=== PATIENT | female | born 1955 | race Caucasian/White ===

== ENCOUNTER 2022-04-20 10:22 | Outpatient (CLI) | payer MEDICARE, SELFPAY | END 2022-04-20 10:23 | disposition home or self-care (01) | PROVIDERS: PCP Physician Assistant Medical; Visit Provider Physician Assistant Medical | DX: E55.9 Vitamin D deficiency, unspecified (principal); E78.5 Hyperlipidemia, unspecified; F41.9 Anxiety disorder, unspecified; E53.8 Deficiency of other specified B group vitamins | CPT/HCPCS: 80053; 80061; 82306; 82607; 84443 ==

== ENCOUNTER 2023-03-25 10:25 | Outpatient (CLI) | payer MEDICARE, SELFPAY | END 2023-03-25 10:26 | disposition home or self-care (01) | PROVIDERS: PCP Physician Assistant Medical; Visit Provider Physician Assistant Medical | DX: E78.2 Mixed hyperlipidemia (principal); M85.80 Other specified disorders of bone density and structure, unspecified site; Z13.228 Encounter for screening for other metabolic disorders; Z13.29 Encounter for screening for other suspected endocrine disorder | CPT/HCPCS: 80053; 80061; 82306; 84443 ==

== ENCOUNTER 2023-06-07 08:02 | Outpatient (CLI) | payer MEDICARE, SELFPAY ==
--- NOTE | 2023-06-07 09:02 | W.ANESCHARGE ---
Anesthesia Charges Start Date/Time Anesthesia Start Date: 06/07/23 Anesthesia Start Time: 08:30 Stop Date/Time Anesthesia Stop Date: 06/07/23 Anesthesia Stop Time: 08:59
--- NOTE | 2023-06-07 11:52 | W.ANESCHARGE ---
Anesthesia Charges Start Date/Time Anesthesia Start Date: 06/07/23 Anesthesia Start Time: 08:30 Stop Date/Time Anesthesia Stop Date: 06/07/23 Anesthesia Stop Time: 08:59
== END 2023-06-07 08:03 | disposition home or self-care (01) ==
LOC: OP CLINIC 08:03
PROVIDERS: PCP Physician Assistant Medical; Visit Provider Surgery
DX: K63.5 Polyp of colon (principal); K62.1 Rectal polyp; K63.89 Other specified diseases of intestine; Z86.010 Personal history of colon polyps
CPT/HCPCS: 00811; 45380; 45385; 88305; J2704

== ENCOUNTER 2023-06-14 12:49 | Outpatient (CLI) | payer MEDICARE, SELFPAY ==
--- NOTE | 2023-06-14 13:00 | XR_ITS ---
Patient: XIAO FRANCO Facility:?[facility] Patient ID:?[id number] Site Patient ID:?[id number]. Site :?[id number] Study:?DEXA-Bone Density -06/14/2023 1:17:10 PM Ordering Physician:FIDE Final Report: DXA BONE MINERAL DENSITY STUDY Current height (in): 63.0. Weight (lb): 160.0. Menopause age: 51. Ethnicity: White. Reason for exam: Screening. History of osteopenia. 1. Have you had a previous hip or vertebral fracture? No. 2. Have you had any fractures during your adult life which did not result from significant trauma (e.g., auto accident)? No. 3. Did either of your parents have a hip fracture? Yes. 4. Do you smoke? No. 5. Have you ever taken Glucocorticoids? No. 6. Do you have rheumatoid arthritis? No. 7. Do you have secondary osteoporosis? No. 8. Do you drink 3 or more alcoholic drinks per day? No. 9. Are you being treated for osteoporosis? No. 10. Have you ever taken any of the following medications: Actonel, Evista, Fosamax, Miacalcin, Reclast, Boniva, Forteo, HRT (i.e. estrogen/hormone therapy), Protelos, Prolia, Vitamin D, Calcium, other ? please specify. ANSWER: Yes, vitamin D, calcium. 11. Do you have any of the following medical conditions: Anorexia or bulimia, asthma or emphysema, end stage renal disease, hyperparathyroidism, any seizure disorders, cancer, inflammatory bowel diseases, hysterectomy, other ? please specify. ANSWER: No. 12. What was your maximum height (inches)? 63. 13. Do you perform weight bearing exercise regularly? No. 14. Do you regularly consume dairy products? No. 15. Do you drink caffeinated beverages? No. 16. At what age did your period start? 11. 17. Are you premenopausal? Yes. 18. How many full-term pregnancies have you had? 4. 19. Have you ever missed your period for more than 6 months in a row (not including or menopause)? No. TECHNIQUE: Bone mineral density study was performed using the [employer]. FINDINGS: The results of the study expressed as bone mineral density (BMD) are as follows: Lumbar spine L1 to L4: BMD: 0.970 g/cm2. T-score: -0.7. Z-score: 1.3 Neck Left: BMD: 0.718 g/cm2. T-score: -1.2. Z-score: 0.5 Right: BMD: 0.763 g/cm2. T-score: -0.8. Z-score: 0.9 Total Left: BMD: 0.922 g/cm2. T-score: -0.2. Z-score: 1.3 Right: BMD: 0.938 g/cm2. T-score: -0.0. Z-score: 1.4 IMPRESSION: Osteopenia. *Comparison exams done prior to 07/2019 were performed on different unit, [facility]. COMPARISON: Compared with scan of 06/04/2021, the bone mineral density has increased by 2.3 percent at the spine and decreased by 0.5 percent at the hip. Erich Keyes M.D. Diagnostic Radiologist [email or web address] DSM/keturahw: D& Transcribed: 1:43 pm DW/Dictated by: Erich Keyes MD @ 06/15/2023 12:37:00 PM Signed by:?Erich Keyes MD @06/15/2023 2:27:59 PM (Electronic Signature)
--- NOTE | 2023-06-14 13:40 | MM_ITS ---
Patient: XIAO FRANCO Facility:?[facility] Patient ID:?[id number] Site Patient ID:?[id number]. Site :?1955 Study:?XRay-Breast Bilateral 3D W/CAD-06/14/2023 1:48:26 PM Ordering Physician:Riley Caro Final Report: BILATERAL SCREENING MAMMOGRAM WITH COMPUTER-AIDED DETECTION AND TOMOSYNTHESIS TECHNIQUE: CC and MLO views were obtained. These mammographic images have been obtained using full-field digital technique. These mammographic images were interpreted with the benefit of computer-aided detection. Breast Tomosynthesis was used in this interpretation. COMPARISON FILM: 06/04/21, 05/12/20, 10/05/16. FINDINGS: There are scattered areas of fibroglandular density. IMPRESSION: There is no radiographic evidence for malignancy. ASSESSMENT: BI-RADS Category 1: Negative RECOMMENDATION: Routine screening mammogram in 1 year. A lay language report of this examination will be provided to the patient. Erich Keyes M.D. Diagnostic Radiologist [email or web address] DSM/sp R& Transcribed: 5:12 p.m. SP/Dictated by: Erich Keyes MD @ 06/15/2023 12:03:00 PM Signed by:?Erich Keyes MD @06/15/2023 6:52:52 PM (Electronic Signature)
== END 2023-06-14 12:50 | disposition home or self-care (01) ==
PROVIDERS: PCP Physician Assistant Medical; Visit Provider Physician Assistant Medical
DX: Z12.31 Encounter for screening mammogram for malignant neoplasm of breast (principal); Z13.820 Encounter for screening for osteoporosis; M85.89 Other specified disorders of bone density and structure, multiple sites; M85.80 Other specified disorders of bone density and structure, unspecified site
CPT/HCPCS: 77063; 77067; 77080

== ENCOUNTER 2023-06-28 09:00 | Outpatient (CLI) | payer MEDICARE, SELFPAY | END 2023-06-28 09:01 | disposition home or self-care (01) | LOC: NFLDREF 06-29 07:04 | PROVIDERS: PCP Physician Assistant Medical; Referring Provider Physician Assistant Medical; Visit Provider Physician Assistant Medical | DX: E78.2 Mixed hyperlipidemia (principal) | CPT/HCPCS: 80061; 84450; 84460 ==

== ENCOUNTER 2024-03-26 10:44 | Outpatient (CLI) | payer MEDICARE, SELFPAY | END 2024-03-26 10:45 | disposition home or self-care (01) | LOC: NFLDREF 03-30 02:49 | PROVIDERS: PCP Physician Assistant Medical; Referring Provider Physician Assistant Medical; Visit Provider Physician Assistant Medical | DX: E78.2 Mixed hyperlipidemia (principal); E53.8 Deficiency of other specified B group vitamins; R03.0 Elevated blood-pressure reading, without diagnosis of hypertension; M85.80 Other specified disorders of bone density and structure, unspecified site; Z13.29 Encounter for screening for other suspected endocrine disorder | CPT/HCPCS: 80053; 80061; 82306; 82607; 84443 ==

== ENCOUNTER 2024-06-26 12:35 | Outpatient (CLI) | payer MEDICARE, SELFPAY ==
--- NOTE | 2024-06-26 13:00 | CRLHL7_ITS ---
For Patients: As a result of the Century Cures Act, medical imaging exams and procedure reports are released immediately into your electronic medical record. You may view this report before your referring provider. If you have questions, please contact your health care provider. INDICATION: BILATERAL SCREENING MAMMOGRAM, ASYMPTOMATIC 68 Y/O FEMALE COMPARISON: 06/14/2023, 06/04/2021, 05/12/2020 TECHNIQUE: Digital mammogram in CC and MLO projections including computer-aided detection (CAD) and tomosynthesis. BREAST COMPOSITION: The breasts are almost entirely fatty. FINDINGS: No suspicious findings. ASSESSMENT: BI-RADS 1 Negative RECOMMENDATION: Annual screening mammogram. A lay language report of this examination will be provided to the patient. Dictated by: Erich Keyes MD @ 06/27/2024 11:57:20 (Electronically Signed)
== END 2024-06-26 12:36 | disposition home or self-care (01) ==
LOC: MAMMO 12:36
PROVIDERS: PCP Physician Assistant Medical; Visit Provider Physician Assistant Medical
DX: Z12.31 Encounter for screening mammogram for malignant neoplasm of breast (principal)
CPT/HCPCS: 77063; 77067